=== PATIENT | female | born 1980 | race Hispanic/Latino ===

== ENCOUNTER 2017-12-19 06:53 | Inpatient (IN) | payer OTHER ==
[2017-12-19] MEDS ORDERED: PROMETHAZINE 25 MG/ML VIAL IV PRN (07:43)
[2017-12-19] MEDS ORDERED: Ringers Lactate 1,000 ML IV PRN (07:43)
[2017-12-19] MEDS ORDERED: BUTORPHANOL 1 MG/ML INJ IV PRN (07:43)
[2017-12-19] MEDS ORDERED: CARBOPROST TROME 250 MCG/ML IM PRN ×2 (07:43→18:26)
[2017-12-19] MEDS ORDERED: PENICILLIN G POT 5 MU/100 ML VIAL IV SCH (08:00)
[2017-12-19] MEDS ORDERED: Ringers Lactate 1,000 ML IV SCH (08:00)
[2017-12-19] MEDS ORDERED: OXYTOCIN/LR 20 UNIT/1,000 ML BAG IV SCH ×2 (08:00→19:00)
[2017-12-19 08:09] LABS: RPR Titer ND
[2017-12-19 08:17] LABS: Urine Appearance CLOUDY; Urine Bilirubin NEGATIVE (NEG); Urine Blood TRACE (NEG); Urine Color YELLOW; Urine Glucose NEGATIVE (NEG); Urine Protein NEGATIVE (NEG); Urine Urobilinogen 0.2 mg/dL (0.2-1.0); Urine pH 6.5 (5.0-7.0)
[2017-12-19 08:20] LABS: Urine Microscopic Reflex ORDER UMIC
[2017-12-19 08:28] LABS: Absolute Monocytes 0.7 K/uL (0.1-1.3); Absolute Neutrophil 6.9 K/uL (1.8-8.0); Basophils % 0.3 % (0-1.3); Eosinophils % 1.2 % (0-4.4); Hematocrit 36.7 % (36.0-45.0); Lymphocytes % 20.3 % (15.3-44.8); MCH 28.6 pg (27.0-35.0); MCV 82.6 fL (80-100); MPV 12.8 fL (7.6-11.3); Monocytes % 7.5 % (3.3-12.3); RBC Red Blood Cell Count 4.44 M/uL (3.86-4.86)
--- NOTE | 2017-12-19 08:42 | PREOPHP ---
Date of Admission: 12/19/2017 History Of Present Illness: Ms. Lacy is a 37-year-old female, 1, para 0, who wi ll be admitted for induction of labor secondary to a 39-week , gestational diabetes, advance d maternal age, and beta strep carriage. She has been followed by me during this with comp lications of advanced maternal age and gestational diabetes. Past Medical History: Please see record. Family History: Please see record. Review of Systems: She reports no recent cough, cold, fever, chills, or UTI symptoms. She denies any breast knots or gavi mps. Baby has been active. She denies any bowel or bladder issues. Physical Examination: General: Reveals a pleasant female, in no apparent distress. Neck: Supple without adenopathy or thyromegaly. Lungs: Clear. Cardiac: Regular rate and rhythm without murmurs. Breasts: Not examined. Abdomen: Shows 36 cm fundal height. heart tones well heard. Pelvic: Cervix noted to be 3 cm dilated, 50% effaced, vertex at -1 station. Extremities: No cyanosis, clubbing, or edema. Impression: A 39-week , gestational diabetes, advanced maternal age, positive beta strep ca rriage. Plan: The patient will be admitted tomorrow for induction of labor, will be treated with penicillin for strep prophylaxis. ART/JUSTIN Voice ID: [id number]
[2017-12-19 08:51] LABS: Urine Bacteria 20-50 /HPF (<20); Urine Culture Reflex Order REFLEXED; Urine Mucus 2+ /HPF (NONE SEEN); Urine RBC <5 /HPF (NONE SEEN)
[2017-12-19 09:03] VITALS: BMI 33.9
[2017-12-19] MEDS ORDERED: ROPIVACAINE HCL 100 ML IV PRN ×2 (10:44→11:21)
[2017-12-19] MEDS ORDERED: FENTANYL CITR 100 MCG/2 ML IV ONE (10:45)
[2017-12-19] MEDS ORDERED: ROPIVACAINE HCL 0.2% 20ML AMP IV ONE (11:23)
[2017-12-19] MEDS ORDERED: PENICILLIN 2.5 MU in NA CHLORIDE 0.9% 100 ML IV SCH (12:00)
--- NOTE | 2017-12-19 15:49 | P.PN ---
Date of Service: 12/19/17 Cx 4+, vtx minus 2 station now with caput, fht's show decreased variability and late type of decellerations. Will flatten, to side, O2 by face mask, type and screen and watch for improved fht's and progress in labor.
[2017-12-19] MEDS ORDERED: METOCLOPRAMIDE 10 MG/2mL INJ IV ONE (16:39)
[2017-12-19] MEDS ORDERED: NA CIT/CITRIC AC 30 ML ORAL UDC PO ONE (16:39)
[2017-12-19] MEDS ORDERED: CEFAZOLIN/SWI 2gm 2 GM/20 ML SYR IV SCH (17:00)
[2017-12-19] MEDS ORDERED: ONDANSETRON 4 MG (ODT) TAB PO PRN (18:26)
[2017-12-19] MEDS ORDERED: IBUPROFEN 200 MG TAB PO PRN (18:26)
[2017-12-19] MEDS ORDERED: METHYLERGONOVINE 0.2 MG TAB PO PRN (18:26)
[2017-12-19] MEDS ORDERED: Oxycodone HCl/Acetaminophen 1 TAB TAB PO PRN (18:26)
[2017-12-19] MEDS ORDERED: METHYLERGONOVINE 0.2MG/ML AMP IM PRN (18:26)
--- NOTE | 2017-12-19 18:32 | P.BOP ---
Preoperative diagnosis: 39 week , AMA, gestational diabetes Postoperative diagnosis: Same, viable female delivered Primary procedure: SCVD Secondary procedure: repair of perineal lacerations Estimated blood loss: 400ml Anesthesia: epidural Complications: Other (Mild shoulder dystocia, tx'ed with Florin manuever) Transferred to: Other (272) Condition: Good
--- NOTE | 2017-12-20 06:25 | P.PN ---
Date of Service: 12/20/17 S-No complaints except laceration discomfort O- on bili light, fbs, hct pending, fundus nontender A-Satisfactory P-Observe until tomorrow, check sugars, tx , watch bp.
--- NOTE | 2017-12-20 07:59 | OP ---
Surgeon: Nikko Lopes MD Delivery Note: Ms. Lacy is a 37-year-old single female, 1, para 0, at 39 weeks gestation. She has been followed by me during this with complications of advanced maternal age, gestational diabetes, treated with glyburide, and positive beta strep carriage. Because of thi s, she is admitted for induction of labor at 39 weeks gestation. She is noted to be 3 cm on admissio n after receiving a dose of 5 million units of penicillin for beta strep prophylaxis. Rupture of mem branes was performed. Pitocin induction of labor was begun. She had a total of 3 doses of penicilli n. She had a first stage of labor of 9 hours and 29 minutes, second stage of labor of 22 minutes. S he delivered by spontaneous controlled vaginal delivery a 7-pound 15-ounce female infant, Apgars 9 an d 9. Infant was delivered vertex OA. The cord after delayed cord clamping was clamped, cut, and the infant was placed on mother's abdomen. Cord blood was obtained. The placenta was spontaneously exp elled and appeared to be intact. Intrauterine exam revealed no retained placental fragments. She beck d mild shoulder dystocia treated with Florin maneuver. She had a second-degree midline perineal l aceration and a first-degree right periurethral laceration which were repaired in usual fashion with 3-0 Vicryl suture. Estimated total blood loss was less than 400 cc. The patient had an epidural cat heter placed at approximately 3+ cm cervical dilatation and received excellent benefit from this. ART/JUSTIN Voice ID: [id number] Report ID: [id number]
[2017-12-20] MEDS ORDERED: FAMOTIDINE 20 MG/2 ML VIAL IV SCH (09:00)
[2017-12-20] MEDS ORDERED: Tdap (Diph,Pertuss(Acell),Tet Vac) 0.5 ML SYR IMVAC ONE (16:39)
[2017-12-20 16:51] VITALS: BP 121/73; TEMP 96.7
[2017-12-20 21:48] LABS: RPR (Rapid Plasma Reagin) NON-REACT (NON-REACT)
[2017-12-21 20:13] LABS: HBsAG Nonreactive (Nonreactive)
== END 2017-12-20 18:30 | disposition home or self-care (01) | DRG 775 ==
LOC: 2ND-WC 06:53
PROVIDERS: ADMIT Specialist; ATTEND Specialist
PROC: 10E0XZZ Delivery of Products of Conception, External Approach (ICD-10-PCS; principal; 2017-12-19)
PROC: 0KQM0ZZ Repair Perineum Muscle, Open Approach (ICD-10-PCS; 2017-12-19)
PROC: 0UQMXZZ Repair Vulva, External Approach (ICD-10-PCS; 2017-12-19)
PROC: 10907ZC Drainage of Amniotic Fluid, Therapeutic from Products of Conception, Via Natural or Artificial Opening (ICD-10-PCS; 2017-12-19)
PROC: 3E033VJ Introduction of Other Hormone into Peripheral Vein, Percutaneous Approach (ICD-10-PCS; 2017-12-19)
DX: O24.425 Gestational diabetes mellitus in childbirth, controlled by oral hypoglycemic drugs (principal); O99.824 Streptococcus B carrier state complicating childbirth; O66.0 Obstructed labor due to shoulder dystocia; O70.1 Second degree perineal laceration during delivery; O71.82 Other specified trauma to perineum and vulva; Z3A.39 39 weeks gestation of pregnancy; Z37.0 Single live birth; Z23 Encounter for immunization
CPT/HCPCS: 36415; 81003; 81015; 82947; 82962; 85014; 85025; 86592; 86850; 86900; 86901; 87086; 87088; 87340; 90715; 99218; J2590; J2795; J3010

== ENCOUNTER 2020-02-29 13:48 | Emergency (ER) | payer BC, SELFPAY ==
--- NOTE | 2020-02-29 17:09 | ER ---
Nurse's Notes [facility] Name: Arleen Lacy Age: 39 yrs Sex: Female : 1980 Arrival Date: 02/29/2020 Time: 13:51 Bed 19 Private MD: Diagnosis: Zoster [herpes zoster]-left mid abdomen Presentation: 02/28 14:26 Chief complaint: Patient states: Started 2 weeks ago, mild pain, starts at the belly ca1 button that goes to the L side and to the back. The pain has been worse today. And I have big rashes on the area. Denies N/V/D. Denies fever. Coronavirus screen: Client denies travel out of the [place] in the last 14 days. At this time, the client does not indicate any symptoms associated with coronavirus-19. Client reports previous positive COVID test result. Date of collection: October 2019. Ebola Screen: Patient negative for fever greater than or equal to 101.5 degrees Fahrenheit, and additional compatible Ebola Virus Disease symptoms Patient denies exposure to infectious person. Patient denies travel to an Ebola-affected area in the 21 days before illness onset. No symptoms or risks identified at this time. Initial Sepsis Screen: Does the patient meet any 2 criteria? No. Patient's initial sepsis screen is negative. Does the patient have a suspected source of infection? No. Patient's initial sepsis screen is negative. Risk Assessment: Do you want to hurt yourself or someone else? Patient reports no desire to harm self or others. Onset of symptoms was February 29, 2020. 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 - Social history:: Smoking status: Patient denies any tobacco usage or history of. Screenin:10 Abuse screen: Denies threats or abuse. Nutritional screening: No deficits noted. ll2 Tuberculosis screening: No symptoms or risk factors identified. Fall Risk None identified. Assessment: 17:09 General: Appears in no apparent distress. Behavior is calm, cooperative, appropriate ll2 for age. Pain: Complains of pain in mid back area, left mid back and abdomen. Neuro: Level of Consciousness is awake, alert, obeys commands, Oriented to person, place, time, situation. Cardiovascular: Patient's skin is warm and dry. Respiratory: Airway is patent Respiratory effort is even, unlabored, Respiratory pattern is regular, symmetrical. GI: Bowel sounds present X 4 quads. Abd is soft and non tender. : No signs and/or symptoms were reported regarding the genitourinary system. EENT: No signs and/or symptoms were reported regarding the EENT system. Derm: Rash noted that is red, raised, on low back area, left low back and abdomen. Musculoskeletal: Circulation, motion, and sensation intact. Range of motion: intact in all extremities. 17:20 Reassessment: VO for 7.5 mg [place] PO, administered as ordered. ll2 Vital Signs: 14:26 BP 127 / 75; Pulse 96; Resp 16 S; Temp 97.2(TE); Pulse Ox 98% on R/A; Weight 88.45 kg ca1 (R); Height 5 ft. 5 in. (165.10 cm) (R); Pain 8/10; 16:47 BP 110 / 70; Pulse 91; Resp 17; Temp 97.6(TE); Pulse Ox 97% ; mh5 14:26 Body Mass Index 32.45 (88.45 kg, 165.10 cm) ca1 ED Course: 13:51 Patient arrived in ED. mr 14:29 Triage completed. ca1 14:31 Arm band placed on right wrist. ca1 16:39 Marcial Barragan MD is Attending Physician. pérez 16:41 Marcial Gavin PA is PHCP. cp 16:47 Laura Dubon, DAVON is Primary Nurse. ll2 16:47 Patient has correct armband on for positive identification. Placed in gown. Bed in low mh5 position. Call light in reach. Side rails up X 1. Warm blanket given. Pulse ox on. NIBP on. 17:25 No provider procedures requiring assistance completed. Patient did not have IV access ll2 during this emergency room visit. Administered Medications: 17:26 Not Given (Patient Refused): [place] (7.5 mg-325 mg) 1 tabs PO once; RASS on ADMIN: ll2 Combtv4, Very Agttd3, Agttd2, Rstlss1, AlertClm0, Drwsy-1, Lt Sdtn-2, Mod Sdtn-3, Dp Sdtn-4, UnArsble-5 Outcome: 17:08 Discharge ordered by MD. ruffin 17:27 Discharged to home ambulatory. ll2 17:27 Condition: stable 17:27 Discharge instructions given to patient, Instructed on discharge instructions, follow up and referral plans. medication usage, Demonstrated understanding of instructions, follow-up care, medications, Prescriptions given X 3. 17:27 Patient left the ED. ll2 Signatures: Marcial Barragan MD MD cha Rivera, Mary mr Marcial Gavin PA PA cp Martinez, Maria [facility] Lisa Grant, DAVON RN ca1 Laura Dubon RN RN ll2
--- NOTE | 2020-02-29 17:09 | EDPHYS ---
Physician Documentation [facility] Name: Arleen Lacy Age: 39 yrs Sex: Female : 1980 Arrival Date: 02/29/2020 Time: 13:51 Bed 19 Private MD: ED Physician Marcial Barragan HPI: 02/28 16:57 This 39 yrs old Female presents to ER via Ambulatory with complaints of cp Abdominal Pain, Back Pain. 16:57 The patient presents with abdominal pain left side of abdomen. cp 16:58 Onset: The symptoms/episode began/occurred 2 week(s) ago. Associated signs and cp symptoms: Pertinent positives: rash to left side of abdomen for past 1 and 1/2 weeks that itches and michelle, Pertinent negatives: anorexia, fever. Severity of pain: in the emergency department the pain is unchanged. 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 - Social history:: Smoking status: Patient denies any tobacco usage or history of. ROS: 17:00 Constitutional: Negative for body aches, chills, fever, poor PO intake. cp 17:00 Cardiovascular: Negative for chest pain. 17:00 Respiratory: Negative for cough, shortness of breath, wheezing. 17:00 Abdomen/GI: Positive for abdominal pain, of the left mid abdomen, Negative for nausea, vomiting, and diarrhea, constipation. 17:00 Skin: Positive for rash, of the left mid abdomen. 17:00 Neuro: Negative for altered mental status, headache, weakness. 17:00 All other systems are negative. Exam: 17:01 Head/Face: Normocephalic, atraumatic. cp 17:01 Constitutional: The patient appears in no acute distress, alert, awake, non-toxic, well developed, well nourished. 17:01 Eyes: Periorbital structures: appear normal, Conjunctiva: normal, no exudate, no injection, Sclera: no appreciated abnormality, Lids and lashes: appear normal, bilaterally. 17:01 Chest/axilla: Inspection: normal. 17:01 Cardiovascular: Rate: normal, Rhythm: regular. 17:01 Respiratory: the patient does not display signs of respiratory distress, Respirations: normal, no use of accessory muscles, labored breathing, is not present, Breath sounds: are clear throughout. 17:01 Abdomen/GI: Inspection: rash noted left mid abdomen that appears as grouped papules with erythema, Bowel sounds: active, all quadrants, Palpation: soft, in all quadrants, tender to palpation noted along left mid abdomen to left mid back. Vital Signs: 14:26 BP 127 / 75; Pulse 96; Resp 16 S; Temp 97.2(TE); Pulse Ox 98% on R/A; Weight 88.45 kg ca1 (R); Height 5 ft. 5 in. (165.10 cm) (R); Pain 8/10; 16:47 BP 110 / 70; Pulse 91; Resp 17; Temp 97.6(TE); Pulse Ox 97% ; mh5 14:26 Body Mass Index 32.45 (88.45 kg, 165.10 cm) ca1 MDM: 16:39 [facility] 17:08 Data reviewed: vital signs, nurses notes, and as a result, I will discharge patient. 17:08 Differential diagnosis: Ureterolithiasis, urinary tract infection, cellulitis, abscess, cp herpes zoster. Counseling: I had a detailed discussion with the patient and/or guardian regarding: the historical points, exam findings, and any diagnostic results supporting the discharge/admit diagnosis, the need for outpatient follow up, a family practitioner, to return to the emergency department if symptoms worsen or persist or if there are any questions or concerns that arise at home. 02/28 17:08 Order name: Urine Dipstick--Ancillary (enter results) [facility] 02/28 17:08 Order name: Urine --Ancillary (enter results) [facility] 02/28 17:04 Order name: Urine Dipstick-Ancillary (obtain specimen); Complete Time: 17:06 cp 02/28 17: Order name: Urine Test (obtain specimen); Complete Time: 17:06 cp Administered Medications: 17:26 Not Given (Patient Refused): [place] (7.5 mg-325 mg) 1 tabs PO once; RASS on ADMIN: ll2 Combtv4, Very Agttd3, Agttd2, Rstlss1, AlertClm0, Drwsy-1, Lt Sdtn-2, Mod Sdtn-3, Dp Sdtn-4, UnArsble-5 Disposition: 17:30 Chart complete. cp 03/01 07:03 Co-signature as Attending Physician, Marcial Barragan MD I agree with the assessment and [facility] plan of care. Disposition: 02/29/20 17:08 Discharged to Home. Impression: Zoster [herpes zoster] - left mid abdomen. - Condition is Stable. - Discharge Instructions: Shingles. - Prescriptions for Valtrex 1 g Oral Tablet - take 1 tablet by ORAL route every 8 hours for 7 days; 21 tablet. capsaicin 0.075 % Topical cream - apply 1 application by TOPICAL route 4 times per day As needed; 45 gram. Tramadol 50 mg Oral Tablet - take 1 tablet by ORAL route every 8 hours as needed; 12 tablet. - Medication Reconciliation Form, Thank You Letter, Antibiotic Education, Prescription Opioid Use form. - Follow up: Private Physician; When: 2 - 3 days; Reason: Worsening of condition. - Problem is new. - Symptoms are unchanged. Signatures: Dispatcher [employer] EDMN Marcial Barragan MD MD cha Page, Corey, PA PA cp Acob, Cheryl, RN DAVON [facility] Laura Dubon RN RN ll2 Corrections: (The following items were deleted from the chart) 02/28 17:27 17:08 02/29/2020 17:08 Discharged to Home. Impression: Zoster [herpes zoster] - left ll2 mid abdomen. Condition is Stable. Discharge Instructions: Shingles. Prescriptions for Valtrex 1 g Oral Tablet - take 1 tablet by ORAL route every 8 hours for 7 days; 21 tablet, capsaicin 0.075 % Topical cream - apply 1 application by TOPICAL route 4 times per day As needed; 45 gram. and Forms are Medication Reconciliation Form, Thank You Letter, Antibiotic Education, Prescription Opioid Use. Follow up: Private Physician; When: 2 - 3 days; Reason: Worsening of condition. Problem is new. Symptoms are unchanged. cp
[2020-02-29] MEDS ORDERED: HYDROCODONE/APAP 7.5/325 MG TAB ONE (17:31)
[2020-02-29 19:09] VITALS: BP 110/70; TEMP 97.6; O2SAT 97
[2020-02-29 19:59] LABS: Urine Blood NEGATIVE (NEG); Urine Glucose 1+ (NEG); Urine Protein NEGATIVE (NEG); Urine Specific Gravity 1.025 (1.005-1.030)
== END 2020-02-29 17:27 | disposition home or self-care (01) ==
LOC: ER 13:48
DX: B02.9 Zoster without complications (principal); I10 Essential (primary) hypertension; E11.9 Type 2 diabetes mellitus without complications
CPT/HCPCS: 81003; 81025; 99283

== ENCOUNTER 2022-05-06 15:01 | Inpatient (IN) | payer BC ==
[2022-05-08] MEDS ORDERED: CARBOPROST TROME 250 MCG/ML IM PRN (13:04)
[2022-05-08] MEDS ORDERED: PROMETHAZINE INJ 25 MG/ML AMP IM PRN (13:04)
[2022-05-08] MEDS ORDERED: Ringers Lactate 1,000 ML IV PRN (13:04)
[2022-05-08] MEDS ORDERED: METHYLERGONOVINE 0.2MG/ML AMP IM PRN (13:04)
[2022-05-08] MEDS ORDERED: miSOPROStoL 100 MCG TAB VAG PRN ×2 (13:07→15:29)
--- OUTSIDE RECORDS SUMMARY | 2022-05-08 13:59 | XMS REPORT | Continuity of Care Document ---
:1980 Author Organization [facility] t Address [address] [place] [address] Care Team Providers Name Role Phone Prem Silva DO Primary Care Physician [phone] Prem Silva Attending Clinician Unavailable Problems This patient has no known problems. Allergies, Adverse Reactions, Alerts This patient has no known allergies or adverse reactions. Social History Social Habit Start Date Stop Date Quantity Comments Source Sex Assigned At [birth year] [facility] 00:00:00 00:00:00 [facility] Medications This patient has no known medications. Procedures This patient has no known procedures. Encounters Start End Encounter Admission Attending Care Care Encounter Source Date/Time Date/Time Type Type Clinicians Facility Department ID 2022-03-11 Outpatient Silva, [facility] [id number] Common 08:48:03 [facility] 2022-03-08 Outpatient Silva, [facility] [id number] Common 10:07:03 Prem [facility] 2022-01-10 Outpatient Silva, [facility] [id number] Common 08:17:03 Prem [facility] Results This patient has no known results.
[2022-05-08] MEDS ORDERED: OXYTOCIN/LR 20 UNIT/1,000 ML BAG IV SCH (14:00)
[2022-05-08] MEDS: Ringers Lactate 1,000 ML IV SCH (14:00)
[2022-05-08 15:02] VITALS: BMI 32.5
[2022-05-08 16:55] LABS: Absolute Lymphocytes (CBC) 3.1 K/uL (0.7-4.9); Hematocrit 33.3 % (36.0-45.0); Lymphocytes % 24.3 % (15.3-44.8); MCV 80.7 fL (80-100); MPV 11.3 fL (7.6-11.3); RBC Red Blood Cell Count 4.12 M/uL (3.86-4.86)
[2022-05-08 16:56] LABS: Urine Bacteria <20 /HPF (<20); Urine Color Yellow (Yellow); Urine Crystals Unidentified Few /HPF (None Seen); Urine Mucus Slight /HPF (None Seen); Urine RBC <5 /HPF (None Seen)
[2022-05-08 16:57] LABS: Urine Bilirubin Negative (Negative); Urine Blood Negative (Negative); Urine Clarity Slightly Cloudy (Clear); Urine Glucose Negative (Negative); Urine Protein Negative (Negative); Urine Urobilinogen 0.2 (Normal)
--- NOTE | 2022-05-08 17:35 | RAD REPORT ---
EXAM DESCRIPTION: RAD - Foot Left 2 View - 05/08/2022 5:29 pm CLINICAL HISTORY: Left Foot pain FINDINGS: A limited two view series No fracture or dislocation seen Large plantar calcaneal spurs
[2022-05-08 17:41] LABS: Hepatitis B surface AG Interp. Nonreactive (Nonreactive)
--- NOTE | 2022-05-08 19:51 | PREOPHP ---
Date of Admission: 05/08/2022 History Of Present Illness: Arleen Lacy is a 41-year-old 2, para 1, history of gestation al diabetes. Also, has a history of fatty liver, history of ABO incompatibility with her first pregn marylu, been seen in conjunction with high-risk doctor, Dr. Ray, in [facility]. She has been on insulin during the with good control. Also, is noted to have polyhydramnios, mild. Has a history of blood pressure problems, but her blood pressures during the have been co mpletely normal. Family History: Grandmother with hypertension. Another grandmother with diabetes. Maternal aunt wi th breast cancer. Patient has no history of STDs. Past Surgical History: No previous surgeries. Allergies: NO ALLERGIES. Medications: She was on metformin prior to coming in for evaluation and was on blood press ure medicines and cholesterol medicines in the past. First was uncomplicated vaginal delivery. Physical Examination: HEENT: Clear. Pupils equal, round, reactive to light and accommodation. Conjunctivae well perfused . No oral, lingual, or buccal lesions. Chest: Lungs are clear. Heart: Without murmurs, thrills, heaves, or rubs. Breasts: Without masses. Abdomen: Obese, but term. Extremities: Clear without edema, cyanosis, or clubbing. Her left toe, the patient bumped few days ago. The toenail looks like it probably will come off. There is bruising. She can move the toes beck s good pulse. She is concerned about infection. I will get an either general surgeon or Dr. Phelps , the scrap crusher, to take a look at it right now. There is no purulent material that I can see. Pelvic: 1.5 cm, 50% effaced, vertex, -1 station. Vertex well applied. Assessment And Plan: 25 mcg of Cytotec inserted. We will insert another 25 mcg every 6 hours for a total of 3 doses if needed. Full labor talk given. Anticipate delivery sometime tomorrow. Patient is Rh positive, immune to Rubella. Negative strep. NBC/MODL Voice ID: [id number]
[2022-05-08] MEDS ORDERED: ZOLPIDEM TARTRATE 10 MG TABLET PO ONE (21:08)
[2022-05-08] MEDS ORDERED: HYDRALAZINE HCL 20 MG/ML VIAL IV ONE (21:15)
[2022-05-08] MEDS ORDERED: HYDRALAZINE HCL 20 MG/ML VIAL ONE (21:18)
[2022-05-08] MEDS ORDERED: BUTORPHANOL 1 MG/ML INJ IV PRN (21:45)
[2022-05-08] MEDS ORDERED: BUTORPHANOL 1 MG/ML INJ ONE (21:51)
[2022-05-08] MEDS ORDERED: ROPIVACAINE 0.2% (200 MG/100 ML) BAG EP ONE (21:53)
[2022-05-08] MEDS ORDERED: FENTANYL CITR 100 MCG/2 ML IV ONE (21:58)
[2022-05-08 22:55] LABS: RPR (Rapid Plasma Reagin) NON-REACT (NON-REACT)
[2022-05-09] MEDS: Ringers Lactate 1,000 ML IV SCH (01:43)
[2022-05-09] MEDS ORDERED: ROPIVACAINE HCL/PF 0.2% 10 ML VIAL EP ONE (02:00)
[2022-05-09] MEDS ORDERED: FENTANYL CITR 100 MCG/2 ML IV ONE (07:01)
[2022-05-09] MEDS ORDERED: LABETALOL 20 MG/4ML SYRINGE IV PRN (07:42)
[2022-05-09] MEDS ORDERED: CARBOPROST TROME 250 MCG/ML IM ONE (07:47)
[2022-05-09] MEDS ORDERED: LIDOCAINE 1% MPF 30 ML VIAL ONE (07:48)
--- NOTE | 2022-05-09 07:52 | P.CNS ---
Date of Consult: 05/09/22 Reason for consult: Left great toe pain History of present illness: Patient is a 41-year-old female that presented to the hospital for induction. On evaluation patient states that she had a small table fall on her left great toe on Friday. She is complaining of pain and discomfort when walking. She also complained of swelling of the toe. I was asked to evaluate this patient. Patient is currently without much discomfort. I had ordered an x-ray last night which did not show any fracture or dislocation. Review of systems: Otherwise unremarkable Past medical history: Currently with gestational diabetes Past surgical history: Negative Allergies: Iodine Social history: Patient does not smoke or drink Family history: Noncontributory Vital signs: Stable, afebrile Physical exam: Awake alert oriented x3 Head and neck exam: No neck masses Chest: Clear Heart: S1-S2 Abdomen: Gravid uterus Extremity: Neurovascular intact with 2+ dorsalis pedis and posterior tibial pulses. Left great toe has ecchymosis below the nailbed anteriorly. There is mild edema present with minimal tenderness. Neuro: Nonfocal Diagnostic data: X-ray negative for fracture or dislocation Assessment: Left great toe soft tissue injury Plan/recommendation: Rest, elevation, ice and compression. Analgesic as needed. Patient can follow-up with the aquatics manager as an outpatient if the viability of the nail is questionable. CC: Dr. Kahn's office
--- NOTE | 2022-05-09 09:12 | PN ---
Arleen aLcy is now 3.5 to 4 cm. Cervix somewhat posterior, had 1 Cytotec 25 mcg and was contract ing every 2 to 3 minutes, but those contractions have spaced out. She has been started on Pitocin, c ontracting every 3 to 5 minutes at this point. She has had 2 doses of Apresoline. She has a history of hypertension. During the , her blood pressures were completely normal. Blood pressure is now running in the 150 to 90 range. I think this is chronic hypertension, not preeclampsia. We w ill continue to monitor blood pressures during the rest of the labor. Rupture of membranes was perfo rmed, very clear fluid, and of course the patient has polyhydramnios and we got dramatic amount of fl uid. Baby is against the cervix, fairly well at this point. Her contractions should increase. We a re preparing her for her epidural. I think we should see more rapid progress from this point forward . Dr. Silva has evaluated her toe. The x-ray showed no fracture. There are no signs of infection. She will be seen by Dr. Phelps, the fish and wildlife biologist on outpatient basis. She has seen him before. MITCH/PRINCESSL Voice ID: [id number] Report ID: [id number]
--- NOTE | 2022-05-09 09:54 | PN ---
The patient is chyna every 2-3 minutes now. Baby still looks good. The baby is still at -1 st ation. We would like to see it come down, but she is a good 4.5 cm, 70% effaced. We are preparing h er for the epidural at this point. Her blood pressures are rising as expected with discomfort. We w ill give her labetalol 10 mg at this point. Systolic is 173 with contraction. Once again, I think t his is chronic hypertension and not preeclampsia. When she gets the epidural, that should moderation the blood pressure somewhat. We will see and keep a close watch on that. We will also get a blood sugar this morning and see what we need to do as far as insulin. NBC/MODL Voice ID: [id number] Report ID: [id number]
[2022-05-09] MEDS ORDERED: BISACODYL 10 MG RECTAL SUPP PR PRN (11:49)
[2022-05-09] MEDS ORDERED: ACETAMINOPHEN 500 MG TAB PO PRN (11:49)
[2022-05-09] MEDS ORDERED: DOCUSATE NA/SENNA CONC 1 TAB PO PRN (11:49)
[2022-05-09] MEDS ORDERED: DIPHENHYDRAMINE 25 MG TAB/CAP PO PRN (11:49)
[2022-05-09] MEDS ORDERED: Oxycodone HCl/Acetaminophen 1 TAB TAB PO PRN ×2 (11:49)
[2022-05-09] MEDS ORDERED: OXYTOCIN/LR 20 UNIT/1,000 ML BAG IV SCH (12:00)
[2022-05-09] MEDS ORDERED: IBUPROFEN 600 MG TAB PO PRN (12:18)
--- NOTE | 2022-05-09 14:24 | OP ---
Surgeon: Myles Kahn MD Procedure In Detail: A 41-year-old 2, para 1, followed antepartum, noted to have a history o f chronic hypertension, type 2 diabetes, was followed in conjunction with Dr. Ray, high-risk physi amrik at [facility]. He has advised to deliver the patient between 38 to 39 weeks. Patient ____ 38 weeks and 4-5 days, possibly 39 according to ultrasound. Came in last night for Cytotec. 25 mcg of Cytotec, 1/4 of a tablet was all that was needed. She was chyna every 2-3 minutes ear ly. This morning, Pitocin was started. When I examined her this morning, she was 3.5 to 4 cm, ruptu re of membranes, significant amount of fluid as the patient also had polyhydramnios, vertex became we ll applied. She initially had a couple of blood pressures that were elevated, was given Apresoline x 2 and labetalol x1. Blood pressures after the epidural went completely normal. She was Rh positive, immune to Rubella, negative strep. Had Stadol 1 mg IV, Phenergan 25 mg IM prior to the epidural. E pidural gave excellent benefit. Second stage consisted of approximately 1 set of pushes. She delive red an estimated 7-pound plus female, Apgars 9 and 9. Small second-degree laceration, simulating epi siotomy, repaired with 2-0 chromic. Schultze delivery of the placenta, was inspected and noted be in tact and normal. 300 cc or less blood loss. Blood sugar was 100 during the labor. She has been on insulin during the and will be put on sliding scale, but at this point, of course, does not need any insulin. Blood pressures continued to be normal. Last blood pressure 129/75. Final Diagnoses: Term intrauterine , maternal insulin-dependent diabetes, history of chroni c hypertension, no hypertension during her and only transient elevation during the delivery. Epidural anesthesia. Spontan eous vaginal delivery. NBC/MODL Voice ID: [id number] Report ID: [id number]
[2022-05-09] MEDS ORDERED: GLUCAGON 1 MG/VIAL IM PRN (16:47)
[2022-05-09] MEDS ORDERED: D10W 250 ML BAG IV PRN (16:54)
[2022-05-09] MEDS ORDERED: INSULIN -REGULAR HUMAN 50 UNIT/0.5 ML ML SQ SCH (18:00)
[2022-05-09] MEDS ORDERED: IBUPROFEN 200 MG TAB PO ONE (18:39)
[2022-05-09] MEDS ORDERED: IBUPROFEN 200 MG TAB PO PRN (19:00)
--- NOTE | 2022-05-10 07:57 | DS ---
Arleen Lacy is a 41-year-old female 2, para 1, followed antepartum and noted to be insulin-dependent diabetic, noted to have polyhydramnios, was seen in conjunction with Dr. Ray, high-clinical research specialist [facility]. Patient also has a history of fatty liver and a history of ABO incompatibility and the first child had to be sent to [place] for treatment. The patient delivered easily and quickly of a 7 pounds 12 ounce female. Apgars 9 and 9 or even 9 and 10. Small second-degree laceration repaired with 2-0 chromic. Schultze delivery of the placenta. Estimated blood loss less than 300 cc. Blood sugar during the labor is 100. Rh positive, immune to rubella and negative strep. , afebrile, ambulating, voiding. Lochia is normal. The last 2 blood sugars have been 110 and 78. Patient without telling nurses took her own metformin 500 mg and has been instructed of course that if she is going to take her medicines, she needs to let us know, but we do not want to not be on the same page here. She did not bring her own glucometer, which of course she has at home. She has a local doctor, Dr. Silva, who takes care of her diabetes when she is not . She also has a history of chronic hypertension, but has not been on medications for sometimes and her blood pressures during the were completely normal. During the labor, were elevated on 3 occasions where she was given medications and after her epidural, her blood pressures moderated, had been normal since. Patient herself is feeling well and will probably be dismissed later today. The baby is under the bili lights, but apparently the bilirubin levels are stable. Dr. West will decide of course when the baby gets to go home and that will determine when the patient herself gets to go home. From an obstetrical standpoint, the patient is doing well. She has been given instructions and dismissal instructions. She has been offered Tdap during her and again today. She has no post epidural problems. When she is dismissed, she will either take Motrin 600 mg or we will phone her for some tramadol if she prefers. Final Diagnoses: Intrauterine gestation 38 weeks and 4 days by best estimates, possibly 39 weeks. Labor induction. Vaginal delivery. Epidural anesthesia. Tdap offered. Baby with hyperbilirubinemia. Insulin dependant diabetes. Patient herself though is doing quite well. MITCH/JUSTIN Voice ID: [id number] Report ID: [id number]
[2022-05-10] MEDS ORDERED: INFLUENZA VACCINE (for 6+ mo) 0.5 ML DOSE IMVAC ONE ×2 (15:59→16:15)
[2022-05-10] MEDS ORDERED: TDAP (DIPHTH,PERTUSS(ACELL),TET VAC) 0.5 ML VIAL IMVAC ONE ×2 (15:59→16:15)
[2022-05-10 18:02] VITALS: BP 131/62; TEMP 97.8
== END 2022-05-10 18:55 | disposition home or self-care (01) | DRG 805 ==
LOC: L&D 15:01 → EDSTATUS 15:14 → 2ND-WC 05-08 13:56
PROVIDERS: ADMIT Specialist; ATTEND Specialist
PROC: 3E02340 Introduction of Influenza Vaccine into Muscle, Percutaneous Approach (ICD-10-PCS; 2022-05-08)
PROC: 3E0234Z Introduction of Serum, Toxoid and Vaccine into Muscle, Percutaneous Approach (ICD-10-PCS; 2022-05-08)
PROC: 10E0XZZ Delivery of Products of Conception, External Approach (ICD-10-PCS; principal; 2022-05-09)
PROC: 0KQM0ZZ Repair Perineum Muscle, Open Approach (ICD-10-PCS; 2022-05-09)
PROC: 0W8NXZZ Division of Female Perineum, External Approach (ICD-10-PCS; 2022-05-09)
DX: O40.3XX0 Polyhydramnios, third trimester, not applicable or unspecified (principal); O24.12 Pre-existing type 2 diabetes mellitus, in childbirth; Z37.0 Single live birth; O36.0930 Maternal care for other rhesus isoimmunization, third trimester, not applicable or unspecified; E11.8 Type 2 diabetes mellitus with unspecified complications; O70.1 Second degree perineal laceration during delivery; O70.9 Perineal laceration during delivery, unspecified; Z23 Encounter for immunization; Z3A.39 39 weeks gestation of pregnancy; Z79.4 Long term (current) use of insulin; Z20.822 Contact with and (suspected) exposure to COVID-19
CPT/HCPCS: 36415; 81001; 82947; 85025; 86592; 86850; 86900; 86901; 87340; 90471; G0433; J0360; J0595; J2001; J2550; J2590; J2795; J3010; J7120; Q2035; U0003